=== PATIENT | female | born 1940 | race Caucasian/White ===

== ENCOUNTER → 2021-09-25 11:06 | Outpatient (BNVA) | payer MEDICARE, BC, SELFPAY | PROVIDERS: Visit Provider Internal Medicine | DX: R79.82 Elevated C-reactive protein (CRP) (principal); L40.9 Psoriasis, unspecified; R53.1 Weakness; L29.9 Pruritus, unspecified; Z11.59 Encounter for screening for other viral diseases; R63.4 Abnormal weight loss; Z68.1 Body mass index [BMI] 19.9 or less, adult; Z87.891 Personal history of nicotine dependence | CPT/HCPCS: 36415; 72040; 72072; 72100; 72202; 73120; 82310; 82533; 82550; 82728; 83516; 83540; 83970; 84100; 84439; 84443; 84480; 84481; 85651; 86140; 86160; 86162; 86200; 86235; 86255; 86376; 86704; 86803; 87340; 99204 ==

== ENCOUNTER 2021-09-25 13:15 | Outpatient (CLI) | payer MEDICARE, BC, SELFPAY ==
--- NOTE | 2021-09-25 13:39 | XR_ITS ---
WS: [email or web address] XR thoracic spine 3V* [id number] REASON FOR EXAM: L40.9 - Psoriasis, unspecified FINDINGS: There are mild superior endplate compression deformities of the lower thoracic vertebrae. Mild narrowing of the intervertebral disc spaces in the lower thoracic spine. No syndesmophyte formation is seen in the thoracic spine. Incidentally noted is extensive calcification of the thoracic aorta without aneurysmal dilatation and extensive calcification of the coronary arteries. XR/XR thoracic spine 3V* [id number] IMPRESSION: Changes of degenerative spondylosis with no definite findings for spondylitis.
--- NOTE | 2021-09-25 13:39 | XR_ITS ---
WS: [email or web address] XR sacroiliac jts m 3V [id number] REASON FOR EXAM: L40.9 - Psoriasis, unspecified FINDINGS: The more superior aspects of the sacroiliac joints are indistinct and may be fused. No erosions are identified. There is sclerosis and osteophytosis of the distal most aspect of the sacroiliac joints compatible wi th osteoarthritis. XR/XR sacroiliac jts m 3V [id number] IMPRESSION: Findings suggesting bilateral sacroiliitis compatible with spondyloarthropathy. Are also findings of osteoarthritis in the sacroiliac joints.
--- NOTE | 2021-09-25 13:39 | XR_ITS ---
WS: [email or web address] XR hand RT 2V [id number] REASON FOR EXAM: L40.9 - Psoriasis, unspecified FINDINGS: Mild to moderate narrowing of the joint spaces with subchondral sclerosis and small marginal osteophy omer involving the PIP and DIP joints of the fingers. Similar character arthropathy of the involving the joints of the thumb. Calcification is seen in the triangular fibrocartilage in the wrist. XR/XR hand RT 2V [id number] IMPRESSION: Arthropathy most characteristic of osteoarthritis however there is noted to be calcification in the triangular fibrocartilage which can be seen with CPPD whic h has osteoarthritis like arthropathy.
--- NOTE | 2021-09-25 13:39 | XR_ITS ---
WS: [email or web address] LUMBAR SPINE: 3 VIEWS TECHNIQUE: AP, lateral and L5-S1 spot. HISTORY: Psoriasis, unspecified. COMPARISON: None available. Marked straightening of the normal lumbar lordosis. Asymmetric disc space narrowing throughout the dominick mbar spine, most significant at L2-3. Pedicles are all identified. No fractures. Facet joint arthritis throughout the lumbar spine. Moderate narrowing of the SI joints. No erosions. Extensive calcification throughout the abdominal aorta and splenic artery. XR/XR lumbar spine 2-3V* [id number] IMPRESSION: 1. Advanced degenerative spondylosis throughout the lumbar spine. No acute fra cture. 2. Extensive atherosclerosis aorta.
--- NOTE | 2021-09-25 13:39 | XR_ITS ---
WS: [email or web address] XR cervical spine fl/ex [id number] REASON FOR EXAM: L40.9 - Psoriasis, unspecified FINDINGS: Neck is nearly horizontal in orientation in the neutral position head forward. Presumed severe kyphos is near the cervicothoracic junction/upper thoracic spine. No focal vertebral body abnormality. Significant intervertebral disc space narrowing C4-C7 with elongated osteophytes. C5-C6 there is a reversal of the curvature of the cervical spine in the lateral projection. Difficult to evaluate due to the habitus of the neck. No significant subluxations or abnormal vertebr al body movement is apparent. Even with extension the head and neck are bowed forward. XR/XR cervical spine fl/ex [id number] IMPRESSION: Abnormal habitus of the cervical spine as above. Degenerative spondylosis.
--- NOTE | 2021-09-25 13:39 | XR_ITS ---
WS: [email or web address] XR hand LT 2V [id number] REASON FOR EXAM: L40.9 - Psoriasis, unspecified FINDINGS: Arthropathy characterized by mild to moderate narrowing of the joint spaces with subchondral sclerosi s and small marginal osteophytes of the DIP and PIP joints of the fingers. Similar arthropathy seen i n all joints of the thumb. There are some small periarticular calcifications seen at the lateral aspect of the metacarpal phalan geal joint of the second and third fingers. There is also calcification in the triangular fibrocartil age. Calcification is seen in the articular cartilage of the radial navicular joint. XR/XR hand LT 2V [id number] IMPRESSION: Arthropathy with characteristics most compatible with osteoarthritis. However a s noted on the right hand there is triangular fibrocartilage calcification. Oth er calcifications are noted as well. 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
[2021-09-25 14:50] LABS: Erythrocyte Sedimentation Rate 3 mm/hr (0-15)
[2021-09-25 15:15] LABS: Calcium 9.8 mg/dL (8.5-10.5)
[2021-09-25 15:21] LABS: Parathyroid Hormone 124.1 pg/mL (15-65)
[2021-09-25 15:22] LABS: Creatine Phosphokinase 70 U/L (26-192); Ferritin 136 ng/mL (15-150); Iron 77 ug/dL (37-145); Thyroid Stimulating Hormone 2.58 uIU/mL (0.27-4.20)
[2021-09-25 21:33] LABS: Free T4 Free Thyroxine 1.42 ng/dL (0.82-1.77); T3 Free 3.2 PG/ML (2.0-4.4)
[2021-09-25 21:40] LABS: Cortisol Random 16.58 ug/dL (2.47-19.5); Hepatitis B Core AB, Total Non-Reactive (Nonreactive); Hepatitis B Surface Antigen Non-Reactive (Nonreactive); Hepatitis C Virus Antibody Non-Reactive (Nonreactive)
[2021-09-26 12:27] LABS: COMPLEMENT COMPONENT C3C 89 mg/dL; COMPLEMENT COMPONENT C4C 29 mg/dL
[2021-09-26 12:57] LABS: CENTROMERE B ANTIBODY <1.0 NEG AI (<1.0 NEG); JO-1 ANTIBODY <1.0 NEG AI (<1.0 NEG); RNP ANTIBODY <1.0 NEG AI (<1.0 NEG); SCL-70 ANTIBODY <1.0 NEG AI (<1.0 NEG); SJOGREN'S ANTIBODY (SS-A) <1.0 NEG AI (<1.0 NEG); SM ANTIBODY <1.0 NEG AI (<1.0 NEG); SS-B <1.0 NEG AI (<1.0 NEG)
[2021-09-26 14:02] LABS: Cyclic Citrullinated Peptide <16 UNITS
[2021-09-26 14:16] LABS: THYROID PEROXIDASE ANTIBODIES 48 IU/mL (<9)
[2021-09-26 16:42] LABS: ANA SCREEN, IFA NEGATIVE (NEGATIVE)
[2021-09-27 00:52] LABS: T3 Total 121 ng/dL (76-181)
[2021-09-27 13:08] LABS: COMPLEMENT, TOTAL (CH50) 43 U/mL (31-60)
[2021-10-01 14:58] LABS: DNA AB (DS) CRITHIDIA,IFA NEGATIVE (NEGATIVE)
== END 2021-09-25 13:16 | disposition home or self-care (01) ==
LOC: RAD 13:39
PROVIDERS: PCP Family Medicine; Visit Provider Internal Medicine
DX: L29.9 Pruritus, unspecified (principal); L40.9 Psoriasis, unspecified; R53.1 Weakness; R63.4 Abnormal weight loss; R79.82 Elevated C-reactive protein (CRP); Z11.59 Encounter for screening for other viral diseases
CPT/HCPCS: 36415; 72040; 72072; 72100; 72202; 73120; 82310; 82533; 82550; 82728; 83516; 83540; 83970; 84100; 84439; 84443; 84480; 84481; 85651; 86140; 86160; 86162; 86200; 86235; 86255; 86376; 86704; 86803; 87340

== ENCOUNTER → 2021-10-03 09:06 | Outpatient (BNVA) | payer MEDICARE, BC, SELFPAY | PROVIDERS: PCP Family Medicine; Visit Provider Internal Medicine | DX: R76.8 Other specified abnormal immunological findings in serum (principal); L40.9 Psoriasis, unspecified; L29.9 Pruritus, unspecified; R63.4 Abnormal weight loss; M54.2 Cervicalgia; Z87.891 Personal history of nicotine dependence | CPT/HCPCS: 99214 ==